=== PATIENT | male | born 1995 | race Asian ===

== ENCOUNTER 2017-01-01 20:31 | Emergency (ER) | payer OTHER ==
[2017-01-01 21:37] VITALS: BP 135/81
--- NOTE | 2017-01-01 22:07 | UC ---
Respiratory Complaint HPI - HPI Summary HPI Summary: Rapid onset fever and cough last night at 7pm. Today fever and cough continue with mild sore throat; denies trouble breathing, n/v/d, mucus production. No exposure to particular illness recently. - History of Current Complaint Chief Complaint: UCGeneralIllness Stated Complaint: FEVER,COLD Time Seen by Provider: 01/01/17 21:54 Hx Obtained From: Patient Onset/Duration: Sudden Onset, Lasting Hours Timing: Constant Severity Initially: Moderate Severity Currently: Moderate Character: Cough: Nonproductive Aggravating Factors: Nothing Alleviating Factors: Nothing Associated Signs And Symptoms: Positive: Fever, Chills. Negative: Wheezing, Dizziness, Nasal Congestion - Allergies/Home Medications Allergies/Adverse Reactions: Allergies Allergy/AdvReac Type Severity Reaction Status Date / Time No Known Allergies Allergy Verified 01/01/17 21:37 Home Medications: Home Medications NK [No Home Medications Reported] 01/01/17 [History Confirmed 01/01/17] PMH/Surg Hx/FS Hx/Imm Hx Endocrine History Of: Denies: Diabetes, Thyroid Disease Cardiovascular History Of: Denies: Cardiac Disorders, Hypertension Respiratory History Of: Denies: COPD, Asthma GI/ History Of: Denies: Ulcer - Surgical History Surgical History: None - Family History Known Family History: Negative: Blood Disorder - Social History Occupation: Employed Full-time Alcohol Use: Occasionally Substance Use Type: None Smoking Status (MU): Never Smoked Tobacco Review of Systems Constitutional: Fever, Chills, Fatigue Skin: Negative Eyes: Negative ENT: Sore Throat Respiratory: Cough Cardiovascular: Negative Gastrointestinal: Negative Genitourinary: Negative Motor: Negative Neurovascular: Negative Musculoskeletal: Negative Neurological: Negative Psychological: Negative All Other Systems Reviewed And Are Negative: Yes Physical Exam Triage Information Reviewed: Yes Appearance: Well-Appearing, No Pain Distress, Well-Nourished Vital Signs: Initial Vital Signs Temp 101.1 F 01/01/17 21:33 Pulse 105 01/01/17 21:33 Resp 20 01/01/17 21:33 BP 135/81 01/01/17 21:33 Pulse Ox 97 01/01/17 21:33 Vital Signs Reviewed: Yes Eye Exam: Normal Eyes: Positive: Conjunctiva Clear ENT Exam: Normal ENT: Positive: Normal ENT inspection, Hearing grossly normal, Pharynx normal, TMs normal. Negative: Nasal congestion, Tonsillar swelling, Tonsillar exudate Dental Exam: Normal Neck exam: Normal Neck: Positive: Supple, Nontender, No Lymphadenopathy Respiratory Exam: Normal Respiratory: Positive: Chest non-tender, Lungs clear, Normal breath sounds, No respiratory distress, No accessory muscle use Cardiovascular: Positive: No Murmur, Tachycardia Musculoskeletal Exam: Normal Neurological Exam: Normal Neurological: Positive: Alert Psychological Exam: Normal Skin Exam: Normal UC Diagnostic Evaluation - Laboratory O2 Sat by Pulse Oximetry: 97 Respiratory Course/Dx - Course Course Of Treatment: Discussed influenza testing and possibility of tamiflu. 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 - Differential Dx/Diagnosis Provider Diagnoses: [id number] Discharge - Discharge Plan Condition: Stable Disposition: HOME Patient Education Materials: Influenza (ED) Forms: *Work Release Additional Instructions: Call or return if you develop increasing fever, shortness of breath, chest pain , bloody sputum, or otherwise worsen. If you have not improved at all after several days, contact your primary care physician or return here.
== END 2017-01-01 22:17 | disposition home or self-care (01) ==
LOC: UCEAST 20:31
DX: J11.1 Influenza due to unidentified influenza virus with other respiratory manifestations (principal)
CPT/HCPCS: 99201; G0463

== ENCOUNTER 2017-01-04 20:47 | Emergency (ER) | payer OTHER ==
[2017-01-04] MEDS ORDERED: Acetaminophen TAB* 325 MG PO ONE (22:23)
[2017-01-04] MEDS ORDERED: Ibuprofen TAB* 600 MG PO ONE (22:23)
--- NOTE | 2017-01-04 22:45 | RAD ---
HISTORY: Fever, cough COMPARISONS: None VIEWS: 2: Frontal dual-energy and lateral views of the chest. FINDINGS: CARDIOMEDIASTINAL SILHOUETTE: The cardiomediastinal silhouette is normal. DHRUV: The dhruv are normal. PLEURA: The costophrenic angles are sharp. No pleural abnormalities are noted. LUNG PARENCHYMA: The lung volumes are low. The lungs are clear ABDOMEN: The upper abdomen is clear. There is no subphrenic gas. BONES AND SOFT TISSUES: No bone or soft tissue abnormalities are noted. OTHER: None. IMPRESSION: LOW LUNG VOLUMES. NO ACTIVE CARDIOPULMONARY DISEASE.
[2017-01-04 23:22] VITALS: BP 107/73
--- NOTE | 2017-01-05 01:25 | UC ---
ade Humphrey Timothy, scribed for Myranda Funez MD on 01/04/17 at 2200 . HPI Febrile Illness - HPI Summary HPI Summary: Olivier Howe is a 21 yo male presenting to [facility] with 6/10 CARREON, sore throat, cough, fever since 12/31/16. Pt was seen at [facility] 01/01/17, but his fever and sore throat have continued, and his cough has become productive, and he has lost his appetite. He denies nausea. His fever responds to medication for 2-3 hours at a time. His temp is 101.4 in room. His last dose of tylenol and ibuprofen was at 1600 today. He has not had his flu shot this year. He denies any MHx. On he was diagnosed clinically as influenza and was not a high risk candidate for influenza, so pt elected not to take tamiflu. - History of Current Complaint Time Seen by Provider: 01/04/17 22:22 Hx Obtained From: Patient Onset/Duration: Started Days Ago - 12/31/16, Still Present Timing: Constant Temperature: 101.4 F Initial Severity: Moderate Current Severity: Moderate Pain Intensity: 6 Pain Scale Used: 0-10 Numeric Aggravating Factors: Nothing Alleviating Factors: OTC Medicine - 2-3 hours of relief from fever Associated Signs and Symptoms: Cough - productive, Headache, Sore Throat, Other : - fever - Allergy/Home Medications Allergies/Adverse Reactions: Allergies Allergy/AdvReac Type Severity Reaction Status Date / Time No Known Allergies Allergy Verified 01/04/17 21:53 Home Medications: Home Medications Ibuprofen [Advil] 200 mg PO TID PRN 01/04/17 [History Confirmed 01/04/17] PMH/Surg Hx/FS Hx/Imm Hx Previously Healthy: Yes Endocrine/Hematology History: Denies: Hx Diabetes, Hx Thyroid Disease Cardiovascular History: Denies: Hx Hypertension Respiratory History: Denies: Hx Asthma, Hx Chronic Obstructive Pulmonary Disease (COPD) GI History: Denies: Hx Ulcer Infectious Disease History: No Infectious Disease History: Denies: Hx Clostridium Difficile, Hx Hepatitis, Hx Human Immunodeficiency Virus (HIV), Hx of Known/Suspected MRSA, Hx Shingles, Hx Tuberculosis, Traveled Outside the [place] in Last 30 Days - Family History Known Family History: Positive: Diabetes Negative: Blood Disorder - Social History Alcohol Use: None Substance Use Type: Reports: None Smoking Status (MU): Never Smoked Tobacco Review of Systems Constitutional: Fever Skin: Negative Eyes: Negative ENT: Sore Throat Respiratory: Cough Cardiovascular: Negative Gastrointestinal: Negative Genitourinary: Negative Motor: Negative Neurovascular: Negative Musculoskeletal: Negative Neurological: Headache Psychological: Negative All Other Systems Reviewed And Are Negative: Yes Physical Exam Triage Information Reviewed: Yes Appearance: No Pain Distress, Well-Nourished, Ill-Appearing Vital Signs: Initial Vital Signs Temp 101.4 F 01/04/17 21:49 Pulse 111 01/04/17 21:49 Resp 18 01/04/17 21:49 BP 118/80 01/04/17 21:49 Pulse Ox 98 01/04/17 21:49 fever noted Vital Signs Reviewed: Yes Eyes: Positive: Conjunctiva Clear. Negative: Discharge ENT: Positive: Hearing grossly normal, Pharyngeal erythema, TMs normal, Muffled/ hoarse voice. Negative: Tonsillar swelling Neck: Positive: Supple, Nontender, No Lymphadenopathy, Other: - good chin to chest, no meningismus Respiratory: Positive: Lungs clear, Normal breath sounds, No respiratory distress. Negative: Wheezing Cardiovascular: Positive: RRR, No Murmur, Pulses Normal, Brisk Capillary Refill Abdomen Description: Positive: Nontender, No Organomegaly, Soft. Negative: Distended, Guarding Bowel Sounds: Positive: Present Musculoskeletal: Positive: Strength Intact, ROM Intact Neurological: Positive: Alert, Muscle Tone Normal Psychological Exam: Normal Psychological: Positive: Age Appropriate Behavior Skin Exam: Normal Skin: Negative: rashes Diagnostics - Radiology CXR Xray Interpretation: No Acute Changes - IMPRESSION: LOW LUNG VOLUMES. NO ACTIVE CARDIOPULMONARY DISEASE. Radiology Interpretation Completed By: Radiologist Re-Evaluation - Re-Evaluation First Eval Re-Evaluation Time: 23:08 Change: Unchanged Comment: Discussed imaging and lab results with Pt. Pt is agreeable to be discharged. Course/Dx - Course Assessment/Plan: Olivier Howe is a 21 yo male presenting to [facility] with 6/10 CARREON, sore throat, cough and fever since 12/31/16, seen at [facility] 01/01. His medications have been reviewed this visit. Of note is his fever of 101.4 in room. He received tylenol and ibuprofen in urgent care to control his fever and pain. His Group A Rapid Strep test was negative. His CXR suggests low lung volumes and no active cardiopulmonary disease. After clinical examination and review of his lab and imaging studies, he will be discharged home with fever and influenza with appropriate instructions. - Febrile Illness Differential Diagnoses: Pneumonia, Other: - strep, influenza - Diagnoses Clinic Provider Diagnoses: fever, influenza Discharge - Discharge Plan Condition: Stable Disposition: HOME Patient Education Materials: Influenza (ED), Fever in Adults (ED) Forms: *School Release, *Work Release Referrals: [facility] [place] [facility] REFERRAL [Outside] - 2 Days Additional Instructions: You were given acetaminophen 650mg and ibuprofen 600mg orally at 10:37pm. Your strep test and chest xray were negative tonight. Please follow up with the primary care physician provided regarding your visit to urgent care today. Return to urgent care or the emergency department with any new or worsening symptoms. The documentation as recorded by the ade mcclellan Timothy accurately reflects the service I personally performed and the decisions made by , Myranda Funez MD.
== END 2017-01-04 23:26 | disposition home or self-care (01) ==
LOC: UCEAST 20:47
DX: R50.9 Fever, unspecified (principal); J11.1 Influenza due to unidentified influenza virus with other respiratory manifestations
CPT/HCPCS: 71020; 87651; 99212; A9270-GY; G0463